=== PATIENT | male | born 2005 | race Caucasian/White ===

== ENCOUNTER 2025-04-25 15:28 | Inpatient (IN) | payer MEDICAID, OTHER ==
[2025-04-25] MEDS ORDERED: MAG HYDROX/AL HYDROX/SIMETH 355 ML BOTTLE PO PRN (16:24)
[2025-04-25] MEDS ORDERED: MAGNESIUM HYDROXIDE 2,400 MG/30 ML CUP PO PRN (16:24)
[2025-04-25] MEDS ORDERED: IBUPROFEN 600 MG TAB PO PRN (16:24)
[2025-04-25] MEDS ORDERED: ACETAMINOPHEN TAB 325 MG TAB PO PRN (16:24)
[2025-04-25] MEDS ORDERED: OLANZapine 10 MG VIAL IM PRN (16:26)
[2025-04-25] MEDS ORDERED: LORazepam 1 MG TAB PO PRN (16:26)
[2025-04-25] MEDS ORDERED: OLANZapine ODT 5 MG TAB PO PRN (16:26)
[2025-04-25] MEDS: QUEtiapine 50 MG TAB PO SCH (20:08)
[2025-04-25] MEDS: DIVALPROEX 500 MG TABLET.DR PO SCH (20:08)
[2025-04-26] MEDS: NICOTINE 14MG/24HR PATCH TRANSDERM SCH (09:16)
[2025-04-26] MEDS: hydrOXYzine HCL 25 MG TAB PO SCH (13:06)
--- NOTE | 2025-04-26 13:25 | P.HP ---
Psychiatric H&P - . H&P Date: 04/26/25 History & Physical: Allergies Allergy/AdvReac Type Severity Reaction Status Date / Time almond Allergy Unknown Verified 04/25/25 16:24 Vital Signs Temp 98.4 F 04/26/25 09:17 Pulse 121 H 04/26/25 09:17 Resp 16 04/26/25 09:17 BP 101/68 04/26/25 09:17 Pulse Ox 98 04/26/25 09:17 FiO2 Intake & Output 04/25/25 04/26/25 04/26/25 18:59 06:59 18:59 Weight 72.73 kg 70.579 kg Laboratory Last Values Estimated Ave Glu mg/dL 88 mg/dL 04/26/25 07: Hemoglobin A1c 4.7 % (<=6.0) 04/26/25 07: TSH 1.090 mIU/L (0.465-4.680) 04/26/25 07:27 04/26/25 12:10 .IDENTIFYING DATA: Patient is a 19 yo male, single, no kids, lives with his mother and sister in a house, unemployed. HPI: Patient presented to the hospital as a transfer from [facility] as per EPS transfer note "Per charting: Pt admitted to [place], pt contacted police on himself because he felt like he would harm someone. "I know I will hurt somebody. I need help". Pt has hx of HI and has acting on before. Pt admitted to , unclear if command in nature. Pt has insomnia. Denies SI or hallucinations. Pt states he feels like he is a threat to others. No medical conditions reported. Pt is currently living with parents. VALPROIC LEVEL: 2.8L, pt admits to medication non complaince. Otherwise labs WNL. VSS. Covid neg. UDS +marijuana. ETOH <10. No known hx of other substances or etoh. reported dx of schizophrenia. No PRNS, no restraints reported." Patient was seen today and agreeable to speak in the office today. He states that he was having a "manic" episode at home and states that he was having racing thoughts and negative thoughts. claims that he was feeling "violent". states that he was hearing voices telling him to "grab a weapon" and states that he was finding it difficult to control and called the police on himself to bring him into the hospital. states tat he has been taking his meds regularly. states that he was feeling tired and denies any depression at this time, admitts to anxiety. claims his sleep has been on/off, appetite has been fair. he was fairly concrete and poverty of content, denies any delusions or paranoia. Patient denies any suicidal or homicidal ideations intent or plan. At this time patient denies any auditory or visual hallucinations. Patient denies any flight of ideas racing thoughts and increased in goal directed behavior. Patient admits to using THC regularly, and vapes nicotine, denies any other rec drug use. PAST PSYCHIATRIC HISTORY: Patient has a history of schiophrenia/bipolar. [Patient states that he is taking Risperdal depakote, seroquel and vistaril. Patient states that he was last hospitalized about 2 months ago at [facility]. Patient claims that he follows up at [facility]. Patient denies any history of suicide attempts in the past. 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 lives with his mother and sister in a house, states that he went to prison earlier this year for assault charges. MENTAL STATUS EXAM: General Appearance: Patient appears to be short in stature, stated age is alert, directable, and attempts to cooperate. Patient appears to have poor hygiene and grooming. Behavior: Patient is seated without any agitated behavior. poor eye contact. Speech: Patient's speech is fluent and nonpressured. [place]. Mood/Affect: Patient reports their mood is anxious, affect is congruent and constricted. Suicidality/Homicidality: Patient denies having any homicidal ideation intent or plan. Denies any suicidal ideations intent or plan Perceptions: Patient denies any visual hallucinations and denies any auditory hallucinations Though content/process: There is no evidence of any delusional thought content and thought process is linear and goal-directed. [place], poverty of content. Memory and concentration: AOX3, grossly intact for the purposes of this session. Can spell "WORLD" backwards Judgment and insight: Poor STRENGTHS/WEAKNESSES: strength is that patient is resilient. Weakness is that patient has poor judgment and is impulsive INTELLECT: Average IMPRESSIONS: Schizoaffective disorder Bipolar type cannabis use disorder nicotine dependence PLAN: -Patient is admitted under voluntary status to MHU for stabilization of psychiatric symptoms and safety. Patient has signed adult voluntary form and has signed medication consent and is placed in patient's chart. -Medications : Risperdal PO 2 mg bid for mood stabilization/psychosis, depakote 1000 mg qhs for mood stabilization, d/c seroquel, vistaril 25 mg bid for anxiety. patient will consider Qu[place]les to help with compliance. -Ativan and Haldol PRN for agitation/aggression -Patient was counselled on substance abuse and desired to cut back on use. -Patient was informed of the risks, benefits and side effects of the medications and patient verbally consented to taking the medications. Patient signed med consent form and was placed in chart. Patient was offered medication information and accepted it -Internal Medicine consult to perform medical evaluation and physical. -NRT -nicotine patch -SW on board for discharge planning. Encourage patient to participate in groups to work on coping skills.
[2025-04-26 17:14] LABS: Bilirubin,Urine Negative (Negative); Blood,Urine Negative (Negative); Color,Urine Colorless; Glucose,Urine (UA) Negative (Negative); Ketones,Urine Trace (Negative); Leukocyte Esterase,Urine Negative (Negative); Nitrite,Urine Negative (Negative); PH, Urine 7.5 (5.0-8.0); Protein,Urine Negative (Negative); Specific Gravity,Urine 1.018 (1.001-1.035); Urobilinogen,Urine 2.0 mg/dL (<2.0)
[2025-04-26] MEDS: DIVALPROEX 500 MG TABLET.DR PO SCH (20:19)
--- NOTE | 2025-04-27 10:23 | P.PN ---
Progress Note - Text Progress Note Date: 04/27/25 Interval history: Patient was seen today for psychiatric follow-up use 1. Patient appears to have improvement in hygiene and grooming today. He claims that he is doing a bit better continues to be fairly concrete and poverty of content. States that his anxiety is also improving mildly. Claims that his mood is also improving. We spoke again about transitioning onto long-acting injection to help compliance after explaining the risks and benefits patient was agreeable to receive the long-acting injection today. He states that he has been going to some groups mainly keeping himself on the unit. Has been eating well, claims that he slept fairly last night. Denies any auditory or visual hallucinations denies any suicidal or homicidal ideations intent or plan. MENTAL STATUS EXAM: General Appearance: Patient appears to be short in stature, stated age is alert, directable, and attempts to cooperate. Patient appears to have improving hygiene and grooming. Behavior: Patient is seated without any agitated behavior. poor eye contact. Improving mildly Speech: Patient's speech is fluent and nonpressured. [place]. Mood/Affect: Patient reports their mood is anxious, affect is congruent and constricted. Improving mildly Suicidality/Homicidality: Patient denies having any homicidal ideation intent or plan. Denies any suicidal ideations intent or plan Perceptions: Patient denies any visual hallucinations and denies any auditory hallucinations Though content/process: There is no evidence of any delusional thought content and thought process is linear and goal-directed. [place], poverty of content. Memory and concentration: AOX3, grossly intact for the purposes of this session Judgment and insight: Poor, improving mildly IMPRESSIONS: Schizoaffective disorder Bipolar type cannabis use disorder nicotine dependence PLAN: -Patient is admitted under voluntary status to MHU for stabilization of psychiatric symptoms and safety. Patient has signed adult voluntary form and has signed medication consent and is placed in patient's chart. -Medications : Decrease Risperdal PO 1 mg bid for mood stabilization/psychosis, patient is agreeable to receive long-acting injection will give loading dose of Invega Sustenna 234 mg IM today, second dose of 156 mg will be due on Saturday. depakote 1000 mg qhs for mood stabilization, vistaril 25 mg bid for anxiety -Ativan and Haldol PRN for agitation/aggression -NRT -nicotine patch -SW on board for discharge planning. Encourage patient to participate in groups to work on coping skills. Likely discharge Saturday after patient receives long- acting injection and titrated off of Risperdal p.o.
[2025-04-27] MEDS: PALIPERIDONE IM 234 MG/1.5 ML SYG IM STA (11:21)
[2025-04-27] MEDS: risperiDONE 1 MG TAB PO SCH (20:43)
--- NOTE | 2025-04-28 11:22 | P.PN ---
Progress Note - Text Progress Note Date: 04/28/25 Interval history: Patient was seen today for psychiatric follow-up. Patient was seen in group [facility]. He has been seen pacing the hallways at times, interacting with other patients. States that he is doing a bit better today. Claims that yesterday he did have a "stomachache" however was asking if it may be due to the medications. He states that he has been trying to stay positive on the unit. Continues to be fairly concrete, limited insight and judgment. He received the long-acting injection loading dose yesterday and tolerated it well. Has been sleeping well and eating well. Denies any auditory or visual hallucinations denies any suicidal or homicidal ideations intent or plan. MENTAL STATUS EXAM: General Appearance: Patient appears to be short in stature, stated age is alert, directable, and attempts to cooperate. Patient appears to have improving hygiene and grooming. Behavior: Patient is seated without any agitated behavior. Improving eye contact. Speech: Patient's speech is fluent and nonpressured. [place]. Improving mildly Mood/Affect: Patient reports their mood is improving mildly, affect is congruent and constricted. Improving mildly Suicidality/Homicidality: Patient denies having any homicidal ideation intent or plan. Denies any suicidal ideations intent or plan Perceptions: Patient denies any visual hallucinations and denies any auditory hallucinations Though content/process: There is no evidence of any delusional thought content a nd thought process is linear and goal-directed. [place], poverty of content. Improving mildly Memory and concentration: AOX3, grossly intact for the purposes of this session Judgment and insight: Poor, improving mildly IMPRESSIONS: Schizoaffective disorder Bipolar type cannabis use disorder nicotine dependence PLAN: -Patient is admitted under voluntary status to MHU for stabilization of psy chiatric symptoms and safety. Patient has signed adult voluntary form and has signed medication consent and is placed in patient's chart. -Medications : Discontinue Risperdal PO, patient received long-acting injection Invega Sustenna 234 mg IM on 04/27 , second dose of 156 mg will be due on Saturday prior to discharge. depakote 1000 mg qhs for mood stabilization, vistaril 25 mg bid for anxiety -Ativan and Haldol PRN for agitation/aggression -NRT -nicotine patch -SW on board for discharge planning. Encourage patient to participate in groups to work on coping skills. Likely discharge Saturday after patient receives long- acting injection and titrated off of Risperdal p.o.
--- NOTE | 2025-04-29 06:52 | P.PN ---
Progress Note - Text Progress Note Date: 04/28/25 patient refused medical evaluation
--- NOTE | 2025-04-29 11:28 | P.PN ---
Progress Note - Text Progress Note Date: 04/29/25 Interval history: Patient was seen today for psychiatric follow-up. Patient was seen wandering the hallways. He was agreeable to speak to fiction and nonfiction prose writer today in the office. Claims that he is doing fairly well today affect appears to be improving. Claims that his mood and anxiety has also been improving. Claims he is able to sleep fairly last night has been going to some groups. Continues to be somewhat concrete. Claims that he tolerated the first injection fairly well we spoke about barbin g the second injection tomorrow morning and planning for discharge shortly after that she was agreeable to this plan. Claims that he slept fairly has not a fair appetite at this time. Denies any auditory or visual hallucinations denies any suicidal or homicidal ideations intent or plan. MENTAL STATUS EXAM: General Appearance: Patient appears to be short in stature, stated age is alert, directable, and attempts to cooperate. Patient appears to have improving hygiene and grooming. Behavior: Patient is seated without any agitated behavior. Improving eye contact. Speech: Patient's speech is fluent and nonpressured. [place]. Improving mildly Mood/Affect: Patient reports their mood is improving mildly, affect is congruent and constricted. Improving mildly Suicidality/Homicidality: Patient denies having any homicidal ideation intent or plan. Denies any suicidal ideations intent or plan Perceptions: Patient denies any visual hallucinations and denies any auditory hallucinations Though content/process: There is no evidence of any delusional thought content and thought process is linear and goal-directed. [place], Improving mildly Memory and concentration: AOX3, grossly intact for the purposes of this session Judgment and insight: improving mildly IMPRESSIONS: Schizoaffective disorder Bipolar type cannabis use disorder nicotine dependence PLAN: -Patient is admitted under voluntary status to MHU for stabilization of psychiatric symptoms and safety. Patient has signed adult voluntary form and has signed medication consent and is placed in patient's chart. -Medications : patient received long-acting injection Invega Sustenna 234 mg IM on 04/27 , second dose of 156 mg will be due on tomorrow prior to discharge. depakote 1000 mg qhs for mood stabilization, vistaril 25 mg bid for anxiety -Ativan and Haldol PRN for agitation/aggression -NRT -nicotine patch -SW on board for discharge planning. Encourage patient to participate in groups to work on coping skills. Likely discharge tomorrow after patient receives long-acting injection
[2025-04-29 22:41] VITALS: RESP 16
[2025-04-30 09:40] VITALS: BP 102/68; PULSE 105; TEMP 98.4
--- NOTE | 2025-04-30 11:12 | P.DS ---
Providers Date of admission: 04/25/25 19:09 Expected date of discharge: 04/30/25 Attending physician: Abdullahi Dubon MD Consults: 04/25/25 16:24 Consult Physician Routine Consulting Provider: Josef Physician Consult Reason/Comments: H&P Do you want consulting provider notified?: Yes Primary care physician: Stated None - Discharge Diagnosis(es) (1) Schizoaffective disorder, bipolar type Current Visit: Yes Status: Acute Priority: High (2) Cannabis use disorder Current Visit: Yes Status: Acute Priority: Medium (3) Nicotine dependence Current Visit: Yes Status: Acute Priority: Low Hospital Course: Admission HPI: Admission note was completed by press writer "Patient is a 19 yo male, single, no kids, lives with his mother and sister in a house, unemployed. Patient presented to the hospital as a transfer from [facility] as per EPS transfer note "Per charting: Pt admitted to [place], pt contacted police on himself because he felt like he would harm someone. "I know I will hurt somebody. I need help". Pt has hx of MT and has acting on before. Pt admitted to , unclear if command in nature. Pt has insomnia. Denies SI or hallucinations. Pt states he feels like he is a threat to others. No medical conditions reported. Pt is currently living with parents. VALPROIC LEVEL: 2.8L, pt admits to medication non complaince. Otherwise labs WNL. VSS. Covid neg. UDS +marijuana. ETOH <10. No known hx of other substances or etoh. reported dx of schizophrenia. No PRNS, no restraints reported." Patient was seen today and agreeable to speak in the office today. He states that he was having a "manic" episode at home and states that he was having racing thoughts and negative thoughts. claims that he was feeling "violent". states that he was hearing voices telling him to "grab a weapon" and states that he was finding it difficult to control and called the police on himself to bring him into the hospital. states tat he has been taking his meds regularly. states that he was feeling tired and denies any depression at this time, admitts to anxiety. claims his sleep has been on/off, appetite has been fair. he was fairly concrete and poverty of content, denies any delusions or paranoia. Patient denies any suicidal or homicidal ideations intent or plan. At this time patient denies any auditory or visual hallucinations. Patient denies any flight of ideas racing thoughts and increased in goal directed behavior. Patient admits to using THC regularly, and vapes nicotine, denies any other rec drug use." Hospital course: Upon admission to the unit patient was directable and agreeable to commence treatment and signed adult voluntary form. Patient was initially bizarre, he had cooperative however with time and treatment patient got along well with other patients on the unit and followed unit protocol. Patient was compliant with the medications and denied any side effects throughout hospital course. Patient was started on his home dose of Risperdal 2 mg twice daily p.o for mood stabilization/psychosis, Depakote 1000 mg nightly for mood stabilization, hydroxyzine 25 mg twice daily for anxiety. Tool Specialist spoke with patient about the risks versus benefits and side effects profiles of long-acting injections versus pills and patient was agreeable to be transition onto long-acting injection to decrease pill per day. Patient was given Invega Sustenna 234 mg IM on 04/27, second dose at 156 mg IM will be given on 04/30, monthly maintenance dose next will be due on 05/28. Patient spoke of his stressors and engaged in therapy both group/activity therapy. Patient was also seen by medical team for history and physical exam. Throughout the course of the hospitalization patient gradually improved with regards to mood, anxiety, psychosis, sleep and became more future oriented with improved insight and judgment. On the day of discharge patient d enied any suicidal or homicidal ideations intent or plan denied any auditory or visual hallucinations. Patient endorsed wanting to live for their health and family. The patient denied any access to guns or weapons. Patient denied any paranoia and did not endorse any delusions. Patient does have a significant history of substance abuse and was counseled on abstaining from all substances including alcohol and marijuana. Patient elected to do outpatient substance use treatment program through their outpatient provider. Patient was also counseled on the medications and need for regular compliance and was encouraged to follow- up with their outpatient appointment for mental health and also for primary care. Prior to discharge a family meeting will be arranged by social media strategist to answer any questions and ensure safety upon discharge incuding making sure that guns/weapons are either removed from the home or locked away. Mental status exam: General Appearance: Patient appears to be fairly stature, short hair, stated age is alert, pleasant, and cooperative. Patient is in no acute distress and has improved hygiene and grooming Behavior: Patient is calmly seated without any agitated behavior. Speech: Patient's speech is fluent and nonpressured. Mood/Affect: Patient reports their mood is "good", affect is congruent and euthymic. Suicidality/Homicidality: Patient denies having any suicidal or homicidal ideation intent or plan. Perceptions: Patient denies any auditory or visual hallucinations. Though content/process: There is no evidence of any delusional thought content a nd thought process is linear and goal-directed. Memory and concentration: AOX3, grossly intact for the purposes of this session. Can spell "WORLD" backwards correctly. Judgment and insight: improved with guarded prognosis Impression: Schizoaffective disorder bipolar type Cannabis use disorder Nicotine dependence Plan: -Continue with discharge today as patient has improved and stabilized psychi atrically and is not currently an imminent threat to themself and/or others. Patient will remain at chronically elevated risk for harm to self and/or others due to their impulsivity and substance abuse. -Continue medications: Discontinued off of Risperdal p.o. Patient was given Invega Sustenna 234 mg IM on 04/27, second dose at 156 mg IM will be given on 04/30, monthly maintenance dose next will be due on 05/28. Depakote 1000 mg nightly for mood stabilization, hydroxyzine 25 mg scheduled twice daily for anxiety. -Patient was counseled on the need for medication compliance and appropriate follow-up at mental health and also primary care for medical issues. Patient verbalized understanding and agreed. -Social work to help coordinate patients discharge today. also to ensure safe home environment that guns/weapons are either removed from the home or locked away. Social work also to arrange for patients follow up appointments for psychiatric care along with follow up with primary care provider. -Patient counseled on abstaining from recreational drugs and marijuana and alcohol. Was informed/educated on the adverse effects on their physical and mental health. Patient verbally agreed and understood. Patient was offered substance abuse treatment however declined at this time. -Patient was instructed to return to the hospital or seek immediate medical care if their psychiatric or medical symptoms do worsen or reoccur. Allergies Allergy/AdvReac Type Severity Reaction Status Date / Time almond Allergy Unknown Verified 04/25/25 16:[address] Glu mg/dL 88 mg/dL 04/26/25 07: Hemoglobin A1c 4.7 % (<=6.0) 04/26/25 07:27 TSH 1.090 mIU/L (0.465-4.680) 04/26/25 07:27 Urine Color Colorless 04/26/25 16:52 Urine Appearance Turbid (Clear) 04/26/25 16:52 Urine pH 7.5 (5.0-8.0) 04/26/25 16:52 Ur Specific [place] 1.018 (1.001-1.035) 04/26/25 16:52 Urine Protein Negative (Negative) 04/26/25 16:52 Urine Glucose (UA) Negative (Negative) 04/26/25 16:52 Urine Ketones Trace (Negative) H 04/26/25 16:52 Urine Blood Negative (Negative) 04/26/25 16:52 Urine Nitrite Negative (Negative) 04/26/25 16:52 Urine Bilirubin Negative (Negative) 04/26/25 16:52 Urine Urobilinogen 2.0 mg/dL (<2.0) 04/26/25 16:52 Ur Leukocyte Esterase Negative (Negative) 04/26/25 16:52 Vital Signs Temp 98.4 F 04/30/25 09:00 Pulse 105 H 04/30/25 09:00 Resp 16 04/30/25 09:00 BP 102/68 04/30/25 09:00 Pulse Ox 99 04/30/25 09:00 FiO2 Patient Condition at Discharge: Stable Plan - Discharge Summary Discharge Rx Participant: No New Discharge Prescriptions: New hydrOXYzine HCL [Atarax] 25 mg PO BID 30 Days #60 tab Divalproex [Depakote] 1,000 mg PO HS 30 Days #60 tab Nicotine 14Mg/24Hr Patch [Habitrol] 1 patch TRANSDERM DAILY 14 Days #14 patch Paliperidone Palmitate [Invega Sustenna] 117 mg IM QMONTHLY #1 each Discharge Medication List Divalproex [Depakote] 1,000 mg PO HS 30 Days #60 tab 04/30/25 [Rx] Nicotine 14Mg/24Hr Patch [Habitrol] 1 patch TRANSDERM DAILY 14 Days #14 patch 04/30/25 [Rx] Paliperidone Palmitate [Invega Sustenna] 117 mg IM QMONTHLY #1 each 04/30/25 [Rx] hydrOXYzine HCL [Atarax] 25 mg PO BID 30 Days #60 tab 04/30/25 [Rx] Follow up Appointment(s)/Referral(s): [facility] [Other] - 05/03/25 11:00 am (May 03 at 1100 with Chandrika Cruz and May 11 at 1245 with Denise Sauer) [facility], [facility] [Other] - 1 Week Activity/Diet/Wound Care/Special Instructions: [facility] Discharge Info Avoid the use of street drugs and alcohol. Take all medications as prescribed. When you are in need of refills on your medications, please contact your outpatient medical provider and/or outpatient psychiatrist. Please go to your scheduled outpatient appointments for aftercare treatment. If symptoms return or become worse, call the crisis line at or and/or visit the nearest emergency room for assistance. [place] [facility] Lifeline - call or text 039. Discharge Disposition: HOME SELF-CARE
[2025-04-30] MEDS: PALIPERIDONE IM 156 MG/ML SYG IM STA (13:27)
== END 2025-04-30 14:11 | disposition home or self-care (01) | DRG 761 ==
LOC: 3MHU 19:09
PROVIDERS: ADMIT Psychiatry & Neurology Psychiatry; ATTEND Psychiatry & Neurology Psychiatry
DX: F25.0 Schizoaffective disorder, bipolar type (principal); F12.90 Cannabis use, unspecified, uncomplicated; F17.290 Nicotine dependence, other tobacco product, uncomplicated; F30.9 Manic episode, unspecified; F41.9 Anxiety disorder, unspecified; G47.00 Insomnia, unspecified; Z56.0 Unemployment, unspecified; Z79.899 Other long term (current) drug therapy
CPT/HCPCS: 81001; 83036; 84443